=== PATIENT | female | born 1995 | race Hispanic/Latino ===

== ENCOUNTER → 2023-10-21 10:22 | Outpatient (REF) | payer OTHER, SELFPAY ==
[2023-10-21 13:02] LABS: Hepatitis B Surface Antibody Positive
[2023-10-23 20:15] LABS: Quantiferon Mitogen minus NIL 7.75 IU/mL; Quantiferon TB Gold Plus Negative (Negative)
== END ==
LOC: OHS 10:22
PROVIDERS: ATTENDING PHYSICIAN Nurse Practitioner Family
DX: Z23 Encounter for immunization (principal)
CPT/HCPCS: 36415; 86480; 86706